=== PATIENT | male | born 1940 | race Caucasian/White ===

== ENCOUNTER 2020-01-17 21:00 | Inpatient (IN) | payer MEDICARE ==
[2020-01-17] MEDS ORDERED: Cefepime 2 GM VIAL ONE (22:39)
[2020-01-17] MEDS ORDERED: Vancomycin 1 GM/200 ML BAG ONE (23:12)
[2020-01-17] MEDS ORDERED: hydrALAZINE 20 MG/ML VIAL SLOW IVP SCH (23:30)
[2020-01-18 00:05] LABS: Troponin I 0.039 ng/mL (< 0.028)
[2020-01-18] MEDS ORDERED: HYDROcodone/Acetaminophen 5/325 mg Tablet PO PRN ×2 (00:59)
[2020-01-18] MEDS ORDERED: Acetaminophen 325 MG TAB PO PRN (00:59)
[2020-01-18] MEDS ORDERED: Ondansetron PF 4 MG/2 ML Vial IVP PRN (00:59)
[2020-01-18] MEDS ORDERED: Ondansetron ODT 4 MG TAB PO PRN (00:59)
[2020-01-18] MEDS ORDERED: hydrALAZINE 20 MG/ML VIAL SLOW IVP PRN (00:59)
[2020-01-18] MEDS ORDERED: Acetaminophen 650 MG Suppository PR PRN (00:59)
--- NOTE | 2020-01-18 01:14 | PDOC.HHP ---
Hospitalist HPI - History of Present Illness sob elevated b/p History of Present Illness: Case of an 79y/o male with pmhx of gerd, hld, hypercholesterolemia, htn and atrial fibrillation who comes to hospital for evaluation and high blood pressure and sob. patient refers he was on his usual state of health until 1 week ago when he started to feel dyspnea, especially on exertion. 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 at the ED patient underwent a cta which showed vascular congestion and elevated bnp for which hospitalist was called for further evaluation and management. also patient with a hx of a recent trauma to his R legs while he was cutting wood with concerns for cellulites. patient denies any chest pain palpitations diaphoresis fever chills or general malaise Hospitalist ROS - Review of Systems All other systems reviewed; all pertinent +/- noted in HPI/Subj Hospitalist History - Past Surgical History Past Surgical History: reports: Cataract Removal, Hernia Repair - Family History Family History: reports: no pertinent history - Social History Smoking Status: Never smoker Alcohol: reports: None Drugs: reports: none Living Situation: With Family - Exam General Appearance: NAD, awake alert Eye: PERRL, anicteric sclera ENT: normocephalic atraumatic, no oropharyngeal lesions Neck: supple, symmetric, no JVD Heart: RRR, no murmur, no gallops Respiratory: no wheezes, no ronchi, normal chest expansion, rales Gastrointestinal: soft, non-tender, non-distended Extremities: no cyanosis, no clubbing, 1+ LE edema Extremities - other findings: area of trauma on L legs with some erythema Neurological: cranial nerve grossly intact, normal sensation to touch, no weakness, no focal deficits Musculoskeletal: normal tone, normal strength, no muscle wasting Psychiatric: normal affect, normal behavior, A&O x 3 Hospitalist Results - Labs Lab results: Troponin I 0.039 ng/mL (< 0.028) H 01/17/20 23:31 Hospitalist H&P A/P - Problem (1) Acute decompensated heart failure Code(s): I50.9 - HEART FAILURE, UNSPECIFIED Status: Acute (2) Uncontrolled hypertension Code(s): I10 - ESSENTIAL (PRIMARY) HYPERTENSION Status: Acute (3) Hypercholesterolemia Code(s): E78.00 - PURE HYPERCHOLESTEROLEMIA, UNSPECIFIED Status: Acute (4) Atrial fibrillation Code(s): I48.91 - UNSPECIFIED ATRIAL FIBRILLATION Status: Acute (5) Cellulitis Code(s): L03.90 - CELLULITIS, UNSPECIFIED Status: Acute - Plan Plan: Case of an 79y/o male with the stated pmhx who present with new onset of d chf and cellulitis D chf - new onset - cta with vascular congestion - pro bnp in the 600s - continue beta bulmaro acei - started on lasix 20mg iv q 12, lasix naive - cardio consulted - initial troponin elevated, will trend uncontrolled htn - continue home meds - could be related to excess fluid secondary to d chf - receiving lasix iv - hydralazine prn atrial fibrillation - continue rate control with beta bulmaro - AC with elliquis hld - continue statin cellulitis - questionable cellulitis, i believe more related to blunt trauma than infection, did not see any portal of entry, does has some erythema on area, and poor kept nails - given vanc + cefepime at ED, will change to ancef - us negative for PE
[2020-01-18 01:23] VITALS: BMI 22.1
[2020-01-18] MEDS: ceFAZolin 1 GM/D5W 1 GM in Premix Bag 1 BAG IVPB SCH ×3 (02:07→17:46)
[2020-01-18 03:08] LABS: Troponin I 0.025 ng/mL (< 0.028)
[2020-01-18 04:53] LABS: #Eosinphils 0.2 thou/uL (0.0-0.7); #Lymphocytes 1.1 thou/uL (1.20-3.40); #Monocytes 0.6 thou/uL (0.11-0.59); #Neutrophils 3.9 thou/uL (1.40-6.50); %Basophils 0.4 % (0.0-1.0); %Eosinophils 2.6 % (0.0-10.0); %Lymphocytes 19.5 % (21.0-51.0); %Monocytes 10.3 % (0.0-10.0); %Neutrophils 67.2 % (42.0-75.0); Hemoglobin 9.9 g/dL (14.0-18.0); Mean Corpuscular HGB CONC 31.9 g/dL (32.0-36.0); Mean Corpuscular Hemoglobin 26.3 pg (27.0-31.0); Mean Corpuscular Volume 82.6 fL (78.0-98.0); Mean Platelet Volume 8.4 fL (7.4-10.4); Platelet Count 192 thou/uL (130-400); RBC Distribution Width 14.2 % (11.5-14.5); Red Blood Cell (RBC) Count 3.77 mill/uL (4.70-6.10); White Blood Cell (WBC) Count 5.9 thou/uL (4.8-10.8)
[2020-01-18 05:21] LABS: ALT (SGPT) 8 U/L (8-55); AST (SGOT) 15 U/L (5-34); Albumin 3.6 g/dL (3.4-4.8); Alkaline Phosphatase 96 U/L (40-110); Anion Gap 13 mmol/L (10-20); BUN (Urea Nitrogen) 11 mg/dL (8.4-25.7); Bilirubin, Total 0.7 mg/dL (0.2-1.2); Calc. Creatinine Clearance 79 mL/min (70-130); Carbon Dioxide 27 mmol/L (23-31); Chloride 101 mmol/L (98-107); Estimated GFR-MDRD 87; Glucose 112 mg/dL (83-110); Magnesium 1.8 mg/dL (1.6-2.6); Protein, Total 6.6 g/dL (5.8-8.1); Sodium 138 mmol/L (136-145)
[2020-01-18 05:23] LABS: Potassium 2.9 mmol/L (3.5-5.1)
[2020-01-18] MEDS: Furosemide 20 MG/2 ML VIAL SLOW IVP SCH ×2 (05:32→14:14)
[2020-01-18] MEDS: Potassium Chloride 20 MEQ TAB PO SCH ×3 (05:54→17:46)
[2020-01-18] MEDS ORDERED: CEFAZOLIN 1 GM in Sodium Chloride 0.9% 100 ML IVPB SCH (06:00)
--- NOTE | 2020-01-18 06:34 | ULT ---
LEFT LOWER EXTREMITY VENOUS DOPPLER STUDY: Date: 01/17/2020 INDICATION: Left lower extremity pain and edema. FINDINGS: Deep veins of left lower extremity evaluated with ultrasound and Doppler, with color Doppler, spectra l analysis, and compression. Deep veins of left lower extremity demonstrate normal blood flow and compression. No evidence of deep venous thrombosis. Soft tissue edema seen lateral to the knee extending to the ankle. Varicose veins are noted below the knee. IMPRESSION: No evidence of left lower extremity deep venous thrombosis. POS: AGW
[2020-01-18] MEDS ORDERED: Metoprolol Tartrate 50 MG TAB PO SCH (09:00)
[2020-01-18] MEDS ORDERED: Hydrochlorothiazide 25 MG TAB PO SCH (09:00)
[2020-01-18] MEDS: Apixaban 5 MG TAB PO SCH ×2 (09:19→20:27)
[2020-01-18] MEDS: Famotidine 20 MG TAB PO SCH ×2 (09:19→20:28)
[2020-01-18] MEDS: Lisinopril 20 MG TAB PO SCH (09:20)
[2020-01-18] MEDS ORDERED: Magnesium 2 GM/50 ML 2 GM in Premix Bag 1 BAG IVPB SCH (10:00)
[2020-01-18 10:37] LABS: SARS-CoV-2 MS2 Positive; SARS-CoV-2 N Gene Negative; SARS-CoV-2 S Gene Negative; SARS-CoV-2 by NAA Not Detected (NotDetected); SARS-CoV-2 orf1ab Negative
--- NOTE | 2020-01-18 13:19 | CON ---
DATE OF CONSULTATION: PRIMARY PADDER CUSHION: Dr. Denver Chaidez. REASON FOR CONSULTATION: Congestive heart failure. HISTORY OF PRESENT ILLNESS: Mr. Rodriguez is a very pleasant 79-year-old gentleman admitted to the hospital with difficulty breathing with exertion, found to have pulmonary congestion on x-ray. The patient came to the emergency room complaining of shortness of breath. He was not having chest pain or pressure. He has also had a high blood pressure. Last week, he has been feeling increasingly short of breath and had some fluid retention. The patient did not have chest pain or pressure. The patient states in the past, he has noted if he heavily exerts himself, he will get tightness in his chest and into both arms, that is only with very heavy exertion. He is very active. 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 MEDICATIONS: At home, he was taking; 1. Metoprolol 50 mg twice a day. 2. Apixaban 5 mg twice a day. 3. Lasix 20 mg a day. 4. Simvastatin. 5. Hydrochlorothiazide 12.5 mg a day. ALLERGIES: LATEX. REVIEW OF SYSTEMS: CONSTITUTIONAL: No significant weight gain or loss. VISION: No changes. HEARING: No changes. PULMONARY: No cough or wheezing. GASTROINTESTINAL: No nausea, vomiting, or diarrhea. SKIN: No rashes. NEUROLOGIC: No unilateral weakness or numbness. PSYCHIATRIC: No unusual depression or anxiety. PHYSICAL EXAMINATION: GENERAL: This is a pleasant 79-year-old gentleman looks younger than his chronologic age. VITAL SIGNS: Blood pressure 133/71; pulse is 50 to 68, it is irregular, atrial fibrillation. LUNGS: Clear. CARDIAC: Irregularly irregular. There is a 2/6 diastolic murmur in left lower sternal border. ABDOMEN: Soft and nontender. EXTREMITIES: Warm and dry. No clubbing or cyanosis. There is mild to moderate edema. PERTINENT LABORATORY DATA: Potassium is low at 2.9. BNP 625. LDL cholesterol 75. Serologies negative for COVID. EKG revealed atrial fibrillation which is chronic with a relatively slow ventricular response. Reviewing the patient's all hospital chart, the dose of metoprolol listed in the hospital chart is actually 25 mg twice a day and lisinopril 20 mg twice a day does seem to be some confusion about the medicines. Previous evaluation including an echocardiogram, there is an echocardiogram done in February of 2019, ejection fraction 50% to 55%. There is moderate aortic insufficiency, moderate mitral and tricuspid insufficiency. CONCLUSION: 1. Diastolic congestive heart failure, acute on chronic. 2. Bradycardia. 3. Chronic atrial fibrillation. 4. Some systems to suggest angina with heavy exertion. PLAN: 1. Agree with furosemide, receiving that intravenously. 2. Hold metoprolol, although we will need to reduce beta bulmaro dose since he has been somewhat bradycardic. 3. Replete potassium. 4. Likely he will able to be released home tomorrow if he is feeling well. We will double check the dose of beta bulmaro at that time. For now, we will hold beta bulmaro. Job ID: [id number]
[2020-01-18] MEDS ORDERED: Atorvastatin Calcium 10 MG TAB PO SCH (21:00)
[2020-01-19] MEDS: ceFAZolin 1 GM/D5W 1 GM in Premix Bag 1 BAG IVPB SCH ×2 (03:05→09:00)
[2020-01-19 04:57] LABS: Anion Gap 14 mmol/L (10-20); BUN (Urea Nitrogen) 16 mg/dL (8.4-25.7); Calc. Creatinine Clearance 72 mL/min (70-130); Calcium 8.9 mg/dL (7.8-10.44); Carbon Dioxide 28 mmol/L (23-31); Chloride 101 mmol/L (98-107); Estimated GFR-MDRD 78; Glucose 92 mg/dL (83-110); Magnesium 2.2 mg/dL (1.6-2.6); Potassium 3.4 mmol/L (3.5-5.1); Sodium 140 mmol/L (136-145)
[2020-01-19] MEDS: Furosemide 20 MG/2 ML VIAL SLOW IVP SCH ×2 (05:38→13:25)
[2020-01-19] MEDS: Famotidine 20 MG TAB PO SCH (08:56)
[2020-01-19] MEDS: Lisinopril 20 MG TAB PO SCH (08:57)
[2020-01-19] MEDS: Apixaban 5 MG TAB PO SCH (08:58)
[2020-01-19] MEDS: Potassium Chloride 20 MEQ TAB PO SCH (08:59)
--- NOTE | 2020-01-19 09:52 | PRG ---
DATE OF SERVICE: 01/19/2020 SUBJECTIVE: Mr. Rodriguez is feeling well today. He is not short of breath. No chest pain. He did have some bradycardia during the night. OBJECTIVE: VITAL SIGNS: Blood pressure now 165/82. Pulse 60, it is irregular. LUNGS: Clear. CARDIAC: Irregularly irregular. ABDOMEN: Soft and nontender. EXTREMITIES: There is no edema. ASSESSMENT: 1. Congestive heart failure, diastolic, acute on chronic, improved. 2. Bradycardia related to beta blockers. He did receive metoprolol tartrate 50 mg yesterday morning. PLAN: 1. Resume beta bulmaro at carvedilol 3.125 mg twice a day. 2. Furosemide can be changed to 20 mg orally twice a day. 3. Lisinopril 40 mg a day. 4. Follow up with Dr. Chaidez next week. Job ID: [id number]
[2020-01-19] MEDS ORDERED: Potassium Chloride 20 MEQ TAB PO SCH (12:00)
[2020-01-19 12:45] VITALS: BP 135/89; TEMP 98.1
[2020-01-19] MEDS ORDERED: Carvedilol 3.125 MG TAB PO SCH (17:00)
--- NOTE | 2020-01-20 08:12 | PDOC.DS.DS ---
Provider - Provider Date of Admission: 01/18/20 16:01 Date of Discharge: 01/19/20 Admitting Provider: Alexandre Orantes Consultations: Cardiology Primary Care Physician: Mario Shirley MD Course - Hospital Course Hospital Course: Patient is a 79-year-old male with chronic atrial fibrillation on anticoagulation, hypertension and chronic diastolic heart failure presented to the emergency room on 01/16 with shortness of breath. His work-up was consistent with congestive heart failure exacerbation. Patient was evaluated by cardiology Dr. 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 His symptoms improved with IV diuretics. Metoprolol was changed to carvedilol. Patient was also diagnosed with right lower extremity cellulitis with history of recent trauma. He was placed on IV Ancef that will be transitioned to Keflex. Final diagnosis: Acute on chronic diastolic heart failure exacerbation Chronic atrial fibrillation with bradycardiametoprolol was changed to carvedilol per cardiology Right lower extremity cellulitis Hypertension Hyperlipidemia Hypokalemia Abnormal TSH at 5.33primary care physician advised to follow CKD stage II Resuscitation Status: 01/18/20 00:59 Resuscitation Status Routine Resuscitation Status: FULL: Full Resuscitation - Labs Lab Results: 01/18/20 04:26 01/19/20 04:04 Abnormal Lab Results - Last 48 hrs 01/19/20 04:04: Potassium 3.4 L Microbiology - Entire Visit 01/18/20 02:28 Venous blood - Left Arm Blood Culture - Preliminary Specimen has been received and culture in progress. No Growth to date. 01/18/20 02:28 Venous blood - Right Arm Blood Culture - Preliminary Specimen has been received and culture in progress. No Growth to date. - Physical Exam Vitals: Weight Weight 174 lb 11.2 oz Physical Exam: The patient was seen and examined on the day of discharge. Plan - Discharge Medications Prescriptions: Cephalexin [Keflex] 500 mg PO Q8HR #20 cap Carvedilol [Coreg] 3.125 mg PO BID-WM #60 tab Saccharomyces boulardii [Florastor] 250 mg PO DAILY #30 cap Potassium Chloride [K-Dur] 20 meq PO DAILY #5 tab Home Medications: Medication Instructions Recorded Confirmed Type Apixaban [Eliquis] 5 mg PO BID 01/18/20 01/18/20 History Furosemide [Lasix] 20 mg PO BID 01/18/20 01/18/20 History Omeprazole 40 mg PO DAILY 01/18/20 01/18/20 History Simvastatin [Zocor] 40 mg PO HS 01/18/20 01/18/20 History Carvedilol [Coreg] 3.125 mg PO BID-WM #60 tab 01/19/20 Rx Cephalexin [Keflex] 500 mg PO Q8HR #20 cap 01/19/20 Rx Lisinopril 20 mg PO BID 01/19/20 01/19/20 History Potassium Chloride [K-Dur] 20 meq PO DAILY #5 tab 01/19/20 Rx Saccharomyces boulardii [Florastor] 250 mg PO DAILY #30 cap 01/19/20 Rx hydrALAZINE [Apresoline] 10 mg PO BID 01/19/20 01/19/20 History Allergies: Latex, Natural Rubber Allergy (Verified 01/19/20 08:55) - Discharge Instructions Discharge Instructions:: Basic metabolic profile after 1 weekprimary care physician advised to follow/arrange Nourishment:: Fluid Restriction Diet (2 lit/day) - Follow up Plan Referrals: Cardiac Rehab - [place] [Outside] - 7 Days (Your doctor has ordered outpatient cardiac rehab for you to begin within 1-2 weeks after you go home from the hospital. The location nearest to you is the [facility]. The front office in [place] will call you in 3-5 days to get you scheduled for your evaluation. If you do not receive a call, please reach out to them at [phone] and request an appointment. Should you have any trouble or need assistance, please call the cardiac rehab main line in [place] at [phone]) Mario Shirley MD [Primary Care Provider] - 01/23/20 10:00 am (Basic metabolic profile after 1 week) Denver Chaidez MD [Active] - 01/26/20 11:15 am (THis is an IN OFFICE visit ) Disposition: HOME
== END 2020-01-19 14:10 | disposition home or self-care (01) | DRG 602 ==
LOC: ERS 21:00 → 2NO 23:21 → OBSVTOIN 01-18 16:01
PROVIDERS: ADMIT Internal Medicine; ATTEND Internal Medicine
DX: L03.116 Cellulitis of left lower limb (principal); I50.33 Acute on chronic diastolic (congestive) heart failure; I13.0 Hypertensive heart and chronic kidney disease with heart failure and stage 1 through stage 4 chronic kidney disease, or unspecified chronic kidney disease; I48.20 Chronic atrial fibrillation, unspecified; K21.9 Gastro-esophageal reflux disease without esophagitis; E78.5 Hyperlipidemia, unspecified; E78.00 Pure hypercholesterolemia, unspecified; I48.0 Paroxysmal atrial fibrillation; Z20.828 Contact with and (suspected) exposure to other viral communicable diseases; M19.90 Unspecified osteoarthritis, unspecified site; F17.220 Nicotine dependence, chewing tobacco, uncomplicated; N18.2 Chronic kidney disease, stage 2 (mild); E87.6 Hypokalemia; Z79.899 Other long term (current) drug therapy; Z91.040 Latex allergy status; Z79.01 Long term (current) use of anticoagulants
CPT/HCPCS: 36415; 80048; 80053; 83735; 84439; 84443; 84484; 85025; 87040; 87635; 93798; 94660; 96365; 96367; J0360; J0690; J0692; J1940; J3370; J3475; U0003